=== PATIENT | female | born 1995 | race Two or more races ===

== ENCOUNTER 2019-01-26 20:13 | Emergency (ER) | payer MEDICAID, OTHER ==
[~2019-01-26] VITALS: Ht 162.6 cm; Wt 75.7 kg
[~2019-01-26 20:13] MED LIST: KEFLEX500 MG ORAL; ZOFRAN4 MG ORAL
--- NOTE | 2019-01-26 20:15 | NUR ---
ED Nurse Note: Patient walked into ED c/o low back pain that started this morning, states that upon urination, she felt a pressure like pain. patient reports being 5 months , rates her pain a 8/10 pain. patient is alert and oriented x4, ambulatory with a steady gait, VSS
[2019-01-26 20:20] VITALS: BP 111/73
[2019-01-26] MEDS ORDERED: Cephalexin 500mg cap ORAL ONE (20:45)
[2019-01-26 20:46] LABS: APPEARANCE,URINE SLIGHTLY CLOUDY; BILIRUBIN, URINE NEGATIVE (NEGATIVE); COLOR,URINE PALE YELLOW; GLUCOSE, URINE (UA) NEGATIVE (NEGATIVE); KETONES,URINE NEGATIVE (NEGATIVE); LEUKOCYTE ESTERASE ,URINE 3+ (NEGATIVE); NITRITE,URINE NEGATIVE (NEGATIVE); PH,URINE 8 (4.5-8.0); PROTEIN,URINE 2+ (NEGATIVE); UROBILINOGEN,URINE NORMAL MG/DL (0.0-1.0)
[2019-01-26] MEDS ORDERED: ONDANSETRON ODT4 MG BC (20:49)
[2019-01-26] MEDS ORDERED: CEPHALEXIN500 MG ORAL (20:49)
[2019-01-26 21:15] VITALS: BP 120/76
--- NOTE | 2019-01-26 21:15 | NUR ---
ER DISCHARGE NOTE: Patient is cleared to be discharged per ERMD, pt is aox4, on room air, with stable vital signs. pt was given dc and prescription instructions, pt was able to verbalize understanding, pt id band removed without complications. pt is able to ambulate with steady gait. pt took all belongings.
--- NOTE | 2019-01-31 18:21 | Emergency Room Report ---
History of Present Illness General Chief Complaint: Back Pain-No Injury Source: Patient Present Illness HPI Patient is a 23-year-old female who presented after increased low back pain. Patient reports having increased pain worse with movement. She denies any recent trauma. She reports having increased dysuria. She reports being approximately 20 weeks . She is not currently followed by [facility] due to insurance change. Patient had not been having any vaginal bleeding or leakage of fluid. She reports normal movement. She reports having some episodes of vomiting. Allergies: Coded Allergies: No Known Allergies (Unverified , 05/10/16) Patient History Past Medical History: none Now: Yes - 5MONTHS, DUE DATE 06/09/19 : 1 Para: 0 Reviewed Nursing Documentation: PMH: Agreed; PSxH: Agreed Nursing Documentation-PM Past Medical History: No Stated History Physical Exam General Appearance: well appearing, no apparent distress, alert, GCS 15 Head: normocephalic, atraumatic ENT: hearing grossly normal, normal voice Neck: full range of motion, supple Respiratory: no respiratory distress, speaking full sentences Cardiovascular #1: normal inspection Gastrointestinal: non tender, soft, no peritonitis, other - gravid uterus Genitourinary: no CVA tenderness Musculoskeletal: normal inspection, back normal Neurologic: normal inspection, alert, oriented x3, responsive, guide cruise III-XII nml as tested, normal gait Psychiatric: normal inspection, mood/affect normal Skin: no rash Medical Decision Making Diagnostic Impression: Primary Impression: Urinary tract infection Additional Impression: Intrauterine ER Course Patient is 23-year-old female presented after increased dysuria as well as low back pain. Differential diagnosis include was not limited to urinary tract infection, premature labor, renal stone, muscular back pain among others. Patient was noted to have prior history of . Bedside ultrasound was performed which showed intrauterine with adequate heart tones. Urinalysis showed some evidence of urinary tract infection. Patient was given Tylenol for pain. She also given prescription for Keflex due to urinary infection. Patient does not appear toxic. She is advised to follow-up with OB/ [facility] due to advanced age of . She did not have any crampy abdominal pain consistent with uterine contractions. Patient appears to be stable for outpatient follow-up. Patient was advised to recheck in 1 to 2 days to reevaluate her urine for clearance. Patient was advised to return for any concerns. Labs Test 01/26/19 20:25 Urine Color Pale yellow Urine Appearance Slightly cloudy Urine pH 8 (4.5-8.0) Urine Specific [place] 1.010 (1.005-1.035) Urine Protein 2+ (NEGATIVE) Urine Glucose (UA) Negative (NEGATIVE) Urine Ketones Negative (NEGATIVE) Urine Blood 5+ (NEGATIVE) Urine Nitrite Negative (NEGATIVE) Urine Bilirubin Negative (NEGATIVE) Urine Urobilinogen Normal MG/DL (0.0-1.0) Urine Leukocyte Esterase 3+ (NEGATIVE) Urine RBC 10-15 /HPF (0 - 2) Urine WBC 5-10 /HPF (0 - 2) Urine Squamous Epithelial Cells Few /LPF (NONE/OCC) Urine Bacteria Few /HPF (NONE) Status: improved Disposition: HOME, SELF-CARE Condition: Stable Scripts Ondansetron Odt* (ZOFRAN ODT*) 4 Mg Tab.rapdis 4 MG BC EVERY 8 HOURS PRN for Nausea & Vomiting, #10 TAB 0 Refills Prov: Kareem Villar MD 01/26/19 Cephalexin* (KEFLEX*) 500 Mg Capsule 500 MG ORAL EVERY 6 HOURS, #28 CAP Prov: Kareem Villar MD 01/26/19 Referrals: NON PHYSICIAN (PCP) Patient Instructions: Urinary Tract Infection Kareem Villar MD Jan 31, 2019 18:21
== END 2019-01-26 21:15 | disposition home or self-care (01) ==
LOC: EMR 20:48
DX: O23.42 Unspecified infection of urinary tract in pregnancy, second trimester (principal); Z3A.00 Weeks of gestation of pregnancy not specified; M54.5 Low back pain
CPT/HCPCS: 81003; 99283